=== PATIENT | female | born 1975 | race Caucasian/White ===

== ENCOUNTER → 2021-08-06 14:18 | Outpatient (CLI) | payer OTHER, SELFPAY ==
[2021-08-06 15:47] LABS: COVID19 -Nasal RAPID Negative (Negative)
== END ==
PROVIDERS: Family Provider Family Medicine; PCP Family Medicine; Visit Provider Obstetrics & Gynecology
DX: Z01.812 Encounter for preprocedural laboratory examination (principal); Z20.822 Contact with and (suspected) exposure to COVID-19
CPT/HCPCS: 87635

== ENCOUNTER 2021-08-09 08:32 | Inpatient (IN) | payer OTHER, SELFPAY ==
[2021-08-09] VITALS (14 sets, daily range): BP systolic 109–138; BP diastolic 58–98; PULSE 60–86; RESP 10–23; TEMP 36.1–36.9; O2SAT 97–100; BMI 31.8
--- NOTE | 2021-08-09 | PATH_ITS ---
[facility] Accession Number: [id number] . 01 Material submitted: . uterus - UTERUS AND BILATERAL FALLOPIAN TUBES . 02 Diagnosis: Uterus and Bilateral Fallopian Tubes, Laparoscopic converted to open Saupracervical Hysterectomy and Bilateral Salpingectomy (Weight 99 grams): Weakly proliferative endometrium; negative for glandular hyperplasia, cytologic atypia, or malignancy. Myometrium with a benign leiomyoma (17 mm); negative for atypia or malignancy. Uterine serosa involved by endometriosis. Right fallopian tube, complete cross sections, involved by endometriosis; negative for malignancy. Left fallopian tube, complete cross sections; negative for malignancy. [facility] 08/14/2021 1503 Local . 02 Electronically signed: . Barbie Aj MD, Pathologist NPI- [id number] . 01 Gross description: . The specimen is received in formalin, labeled uterus and bilateral fallopian tubes, and consists of a 99 gram supracervical hysterectomy measuring 5.6 cm from fundus to cervical stump, 5.0 cm from cornu to cornu, and 5.0 cm from anterior to posterior. The fallopian tubes are received attached to the uterine fundus, are fimbriated, and measure 6.7 x 0.6 cm (right), and 7.5 x 0.7 cm (left). Opening the specimen reveals an endometrial cavity measuring 3.0 cm in length x 2.1 cm in width, lined by hemorrhagic pale painter endometrium, with an average thickness of 0.1 cm. Sectioning the uterus reveals a single leiomyoma (1.7 cm in greatest dimension) involving the otherwise grossly unremarkable myometrium (2.0 cm average thickness). Sectioning the right fallopian tube reveals an unremarkable lumen with adjacent hemorrhagic adipose tissue. The left fallopian tube is grossly unremarkable. The specimen is representatively submitted as follows: . A1: Perpendicular rep of cervical stump at 12 o'clock. A2-A3: Anterior endomyometrium, bisected to include rep of leiomyoma. A4: Perpendicular rep of cervical stump at 6 o'clock. A5: Full thickness rep of posterior endomyometrium. A6: Bisected fimbria and cross sections of right fallopian tube. A7: Bisected fimbria and cross sections of left fallopian tube. ([id number]) /[facility] 08/10/2021 1715 Local . 02 Pathologist provided ICD-10: N80.9, R10.2, N94.2 . 02 CPT . 655054 Specimen Comment: A courtesy copy of this report has been sent to [phone] Performed at: 01 [facility] [address] [id number] MD Corey Rodriges MD Phone: [phone] Performed at: 02 [facility] [address] [place] [id number] MD Maricruz Crouch MD Phone: [phone]
[2021-08-09] MEDS: LACTATED RINGERS 1,000 ML 100 ML IV ×2 (09:00→14:25)
--- NOTE | 2021-08-09 09:33 | PM.PREOP ---
Pre-operative Note COVID-19 COVID-19 status: Negative Result date/Date tested (Pos, Neg/Pending): 08/08/21 Criteria for continued procedure: Non-surgical alternatives not available or appropriate per current SOC Interval Note History & Physical reviewed/Exam performed by Physician: Yes Changes to H&P: No H&P completed within 30 days and has changed as indicated here:: 08/06/21
[2021-08-09] MEDS: SCOPOLAMINE 1 PATCH TOP (09:39)
[2021-08-09] MEDS: CEFAZOLIN 2 GM/20 ML SYRINGE IV (10:00)
--- NOTE | 2021-08-09 10:38 | SUR.OPER ---
Lithotomy on padded OR bed. Bandera Pad Positioner under torso. Head on pillow, arms padded and tucked at sides. Legs secured in padded yellow fins stirrups.
[2021-08-09] MEDS: LACTATED RINGERS 1,000 ML 42 ML IV (11:01)
[2021-08-09] MEDS: ACETAMINOPHEN IV 1,000 MG/100 ML VIAL 400 MG IV (12:03)
[2021-08-09] MEDS: BUPIVACAINE 0.5% (PF) 30 ML, EPINEPHrine 0.15 MG INJ (12:15)
--- NOTE | 2021-08-09 12:35 | P.OP_ITS ---
Operative Date/Time/Diagnoses Date of procedure: 08/09/21 Time of procedure: 12:35 Pre-op diagnosis: Endometriosis Pelvic pain Post-op diagnosis: same Procedure & Clinicians Procedure: Procedures Operation Date: 08/09/21 09:45 Actual Procedure Side Surgeon p Laparoscopic converted to open Supracervical Hysterectomy/ removal of bilateral tubes Roya Parmar MD Indications: Endometriosis Pelvic pain Surgeon: Roya Parmar Set Up Mechanic Automatic Line: Juanita Royal Anesthesia Type: General and Local Operative Notes Findings: 8 wk size fixed uterus Significant endometriosis of the ovaries, uterus, bladder and bowel, posterior and anterior cul de sac Normal appendix Closure Type: primary Specimen(s): left tube, right tube and uterus Applied: catheter (To continuous drainage) and other (Interceed) Estimated blood loss (mL): 200 Blood products transfused: none Procedure in detail: The patient was taken to the operating room where she was placed in the dorsal supine position. After adequate general endotracheal anesthesia was achieved, she was placed in the dorsal lithotomy position, and prepped and draped in the usual sterile fashion. A time-out was performed. A bivalve speculum was placed into the vagina and the anterior lip of the cervix was grasped with a single- tooth tenaculum. Cervical os was sequentially dilated until the Zumi uterine manipulator could pass easily into the endometrial cavity. The single-tooth tenaculum was removed from the anterior lip of the cervix. The bivalve speculum was removed from the vagina. Attention was then turned to the abdomen where 6 cc of 0.5% Marcaine with epinephrine were injected in the umbilical fold. A 5 mm incision was made. The Veress needle was placed into the peritoneal cavity, and its placement confirmed by aspiration and drop test. The abdominal cavity was insufflated with 3.4 L of CO2. The Veress needle was removed, and a 5 mm trocar was placed without difficulty. Initial inspection of the pelvis revealed significant endometriosis of the bladder, uterus, tubes and ovaries, bilateral pelvic sidewalls, and posterior and anterior cul-de-sacs. Due to bowel being stuck to the uterus and the significant endometriosis, a decision was made to proceed with an open procedure. The after school program director scope was removed. The 5 mm trocar was removed. The incision was closed with 4-0 Monocryl in a subcuticular fashion. A Pfannenstiel skin incision was made through the previous Pfannenstiel incision and carried through to the underlying layer of fascia. The fascia was nicked in the midline and the incision extended bilaterally with the Angel scissors. The superior aspect of the fascial incision was grasped with the Dixie clamps, elevated, and underlying rectus muscles were dissected off sharply and bluntly. In a similar fashion this inferior portion of the fascia was grasped with the Dixie clamps, elevated, and the underlying rectus muscle dissected off sharply and bluntly. The rectus muscles were in the midline. The peritoneum was identified, grasped between 2 hemostats, and entered sharply with the Metzenbaum scissors. This incision was extended superiorly and inferiorly with good visualization of the bladder. The O'Mike O'Haas retractor was placed into the incision and the bowel packed away with moist lap sponges. The uterus was grasped with a 4 tooth tenaculum. The right tube was grasped with a Providence. The utero-ovarian vessels on the right side were cauterized and cut. The round ligament was cauterized and cut and tagged with a hemostat. The anterior broad ligament was entered and an attempt was made to create the bladder flap. There were significant adhesions. Posteriorly the broad ligament was entered. The uterine arteries on the right side were skeletonized. The uterine arteries were grasped with a Yemi clamp. Ligated, and suture ligated with 0 Vicryl. All of this was repeated on the patient's left side. The bowel was taken down off of the posterior uterus and cervix. The uterine arteries on the left side were skeletonized, clamped, and suture ligated with 0 Vicryl. The remainder of the bladder flap was created carefully using the Metzenbaum scissors. A moistened sponge stick was then used to bluntly take the bladder down off of the lower uterine segment and cervix. The uterus was amputated 2 cm above the uterosacral ligaments using the Bovie after the Zumi uterine manipulator was removed from the uterus. The endocervical canal was extensively cauterized with the Bovie. The uterus and tubes were handed off for specimen. Approximately 150 endometriotic lesions were cauterized or excised on the ovaries, posterior cul-de-sac, bladder, and bilateral ovarian fossa. The pelvis was copiously irrigated with warm normal saline. There was no bleeding noted. The O'Mike O'Haas retractor and moist lap sponges were removed from the abdomen. The peritoneum was closed over the cervix using 2 0 Vicryl. The parietal peritoneum was closed using 2 0 Vicryl. The fascia was reapproximated using 0 Vicryl in a running fashion. Subcutaneous layer was copiously irrigated with warm normal saline. Six simple interrupted sutures with 3-0 Vicryl were placed to reapproximate the subcutaneous layer. The skin was closed using 4-0 Monocryl in a subcuticular fashion. Steri-Strips and Aquacel dressing were placed. An Allevyn dressing was placed over the umbilical incision. Sponge, lap, and instrument counts were correct x2. The patient tolerated the procedure well, and was taken to PACU in stable condition. Complications: none Post-operative Condition: stable Disposition: PACU Plan for aftercare: To Acute Care after Recovery
[2021-08-09] MEDS: OXYCODONE/ACETAMINOPHEN 5/325 TABLET 1 TAB PO ×2 (13:12→13:38)
[2021-08-09] MEDS: HYDROMORPHONE 2 MG INJ IV ×4 (13:12→13:35)
--- NOTE | 2021-08-09 13:52 | SUR.PHASEI ---
report called to l/d rn, questions answered.
[2021-08-09] MEDS: MORPHINE 4 MG/ML INJ IV (14:36)
[2021-08-09] MEDS: fentaNYL 100 MCG/2 ML INJ 50 MCG IV (15:34)
--- NOTE | 2021-08-09 15:51 | PC.NURSE ---
1400: pt brought to BC03 from PACU. Umbilical dressing saturated and changed by CHECK EMBOSSER's. VSS. Pain 10/21. Will call MD for additional pain meds. Aquacel dressing CD&I. SCD's initiated. at bedside and call light w/in reach
--- NOTE | 2021-08-09 16:11 | PC.NURSE ---
pt states pain is better and the fentanyl took the edge off. RN will bring next dose oxycodone as scheduled, pt is aware and agrees.
--- NOTE | 2021-08-09 16:44 | PC.NURSE ---
1640: All VSS at this time. Umbilical dressing dry and intact. Abdominal dressing intact with small spot of old drainage - which was present on arrival to floor. Pt states pain is 5/10 and is tolerable. Will continue to monitor. Pt denies needing anything at this time.
[2021-08-09] MEDS: OXYCODONE IR 5 MG TABLET PO (17:39)
[2021-08-09] MEDS: KETOROLAC 30 MG/ML VIAL IV (18:03)
[2021-08-09] MEDS: ACETAMINOPHEN 325 MG TABLET 650 MG PO (20:43)
[2021-08-09] MEDS: DOCUSATE 100 MG CAPSULE 200 MG PO (20:43)
[2021-08-09] MEDS: OXYCODONE IR 5 MG TABLET 10 MG PO (20:44)
[2021-08-09] MEDS: METOPROLOL ER 50 MG TABLET PO (20:44)
[2021-08-10] VITALS: BP 118/68; PULSE 88; RESP 16; TEMP 37.3; O2SAT 97
[2021-08-10] MEDS: LACTATED RINGERS 1,000 ML 100 ML IV (00:01)
[2021-08-10] MEDS: KETOROLAC 30 MG/ML VIAL IV ×2 (00:02→06:22)
[2021-08-10] MEDS: OXYCODONE IR 5 MG TABLET 10 MG PO ×5 (00:02→20:38)
--- NOTE | 2021-08-10 01:01 | PC.NURSE ---
pt dressing aquacel to lower abomen clean dry and intact. umbilicus dressing with small amount bloody drainage present. patient states her pain is much more controlled than earlier. she was able to fall asleep for about 1 hour. 1600cc clear yellow UOP emptied and pt is yuri po well. will dangle to ambulate in am. continue to monitor pain.
[2021-08-10] MEDS: ACETAMINOPHEN 325 MG TABLET 650 MG PO (06:23)
[2021-08-10 06:40] LABS: Add Manual Diff / Slide Review NO; Basophils Absolute Auto 0 /uL (0-100); Basophils Percent Auto 0.2 % (0-2); Eosinophils Absolute Auto 0 /uL (0-450); Eosinophils Percent Auto 0.1 % (2-4); Hematocrit 33.7 % (36-46); Hemoglobin 11.3 g/dL (12.0-16.0); Lymphocytes Absolute Auto 1200 /uL (1100-4500); Lymphocytes Percent Auto 9.7 % (25-40); Mean Corpuscular HGB Conc 33.4 % (30-36); Mean Corpuscular Hemoglobin 30.5 PG (26-34); Mean Corpuscular Volume 91.5 fL (80-100); Monocytes Absolute Auto 1000 /uL (0-900); Monocytes Percent Auto 8.2 % (3-14); Neutrophils Absolute Auto 10000 /uL (1500-7000); Neutrophils Percent Auto 81.8 % (50-75); Platelet Count 234 X10^3/uL (150-400); Red Blood Cell Count 3.69 X10^6/uL (4.0-5.2); Red Cell Distribution Width 13.1 % (11.6-14.8); White Blood Cell Count 12.2 X10^3/uL (4.5-11.0)
--- NOTE | 2021-08-10 07:06 | PC.NURSE ---
pt up in room, ambulating well and without any difficulties. ambulated to bathroom and pericare completed, baldomero pad changed, small vaginal drainage. IV to saline lock, advised pt to get oob by 8am to void. pt agrees to call for assistance. medicated with oxycodone 10mg, tylenol 650mg and toradol 30mg. pt states her pain is well controlled this am.
[2021-08-10] MEDS: OXYCODONE IR 5 MG TABLET PO (07:19)
[2021-08-10 08:00] VITALS: BP 118/65; PULSE 75; RESP 16; TEMP 36.6; O2SAT 98
--- NOTE | 2021-08-10 08:11 | PC.NURSE ---
Awake, alert and orientated. Resting in bed. Morelos removed earlier. No urge to void at this time. SHIVANI in-situ capped at this time/not accessed. Vitals: bp 105/63, T. 99.0, P. 81, RR. 16. Eating and tolerating fluids at this time. 2x2 Umbilical dressing, some old oozing noted around edges. Aquacell dressing intact, one small dime size old drainage noted on right side. Pain well controlled with ibuprofen/tylenol and oxycodone. Scant perineal bleeding noted. CHRISTIANO
--- NOTE | 2021-08-10 09:59 | PC.NURSE ---
up to bathroom, voided sufficient quantities of urine as stated by patient. Feels like she was able to empty her bladder. Denies pain/discomfort at this time. resting quietly in bed. Dr Parmar in to see ~30 mins ago
[2021-08-10] MEDS: METOPROLOL IR 50 MG TABLET PO ×2 (10:24→20:39)
[2021-08-10] MEDS: DOCUSATE 100 MG CAPSULE 200 MG PO ×2 (10:24→20:39)
[2021-08-10 11:12] VITALS: TEMP 37.4
[2021-08-10] MEDS: IBUPROFEN 600 MG TABLET PO ×2 (12:15→13:10)
[2021-08-10 13:10] VITALS: TEMP 36.6
--- NOTE | 2021-08-10 15:21 | PC.NURSE ---
92/54, hr 91, temp 98.9, 02 96%. Comfortable at this time. Tolerating food/water. Pain controlled with ibuprofen and oxycodone. Voiding sufficient quantities of pale yellow urine. Will continue to monitor
--- NOTE | 2021-08-10 16:11 | PC.NURSE ---
patient resting comfortably in bed. Voiding without difficulty. Pain controlled with ibuprofen and oxycodone.
--- NOTE | 2021-08-10 16:37 | P.PN_ITS ---
Subjective Subjective Date Patient Seen: 08/10/21 Time Patient Seen: 16:37 Interval history: Patient is a 46 year postop day # 1 status post abdominal supracervical hysterectomy with bilateral salpingectomy and significant cauterization and excision of endometriosis. Her Morelos catheter was removed this morning. She was able to void without difficulty. No nausea or vomiting. Pain is under control. She has tolerated a diet. She is ambulating without assistance. Exam Vital Signs (past 8 hours): - 08/10/21 11:12 08/10/21 13:10 Temperature 99.3 F 97.8 F Oxygen Delivery Method Room Air Narrative Exam Narrative: Generally: Patient is sitting up in bed, eating a meal, no acute distress Lungs: Clear to auscultation bilaterally Cardiovascular: Regular rate and rhythm Abdomen: Soft and flat. Incision: Clean dry and intact with Aquacel dressing. The umbilical incision has a dressing that has a moderate amount of old blood. This is removed and replaced. Extremities: Negative Homans Objective Labs Result Diagrams: 08/10/21 06:20 Labs: Laboratory Results - last 24 hr 08/10/21 06:20 WBC 12.2 H RBC 3.69 L Hgb 11.3 L Hct 33.7 L MCV 91.5 MCH 30.5 MCHC 33.4 RDW 13.1 Plt Count 234 Neut % (Auto) 81.8 H Lymph % (Auto) 9.7 L [place] % (Auto) 8.2 Eos % (Auto) 0.1 L Baso % (Auto) 0.2 Neut # (Auto) 82825 H Lymph # (Auto) 1200 [place] # (Auto) 1000 H Eos # (Auto) 0 Baso # (Auto) 0 PFSH Medical History (Updated 07/05/21 @ 21:09 by Natalie Zarate) Abnormal Pap smear of cervix (~1997) Chicken pox (~1987) Endometriosis (~2009) Heavy menstrual period (~2014) Infertility (~2003) Painful menstrual periods (~2014) Positive PPD (~1998) Surgical History (Updated 07/05/21 @ 21:09 by Natalie Zarate) Anesthesia History of section (~09/16/11) History of laparoscopy (~2008) Hx laparoscopic cholecystectomy (~1998) S/P wisdom tooth extraction Family History (Updated 07/05/21 @ 21:10 by Natalie Zarate) Father Stroke Mother Macular degeneration Mental health problem Grandmother Hypertension Hyperlipidemia Stroke Social History household members: spouse Smoking Status: Never smoker alcohol intake: current Assessment & Plan Post-op Postoperative Procedures: Procedures Operation Date: 08/09/21 09:45 Actual Procedure Side Surgeon p Laparoscopic converted to open Supracervical Hysterectomy/ removal of bilateral tubes Roya Parmar MD Postoperative day: 1 Postoperative status: doing well Postoperative plan: routine post-op care Postoperative plan narrative: Anticipate discharge August 11, 2021 Time Spent With Patient Time with patient: 15-24 minutes
[2021-08-10 20:58] VITALS: BP 101/53; PULSE 79; RESP 16; TEMP 37.4; O2SAT 97
--- NOTE | 2021-08-10 21:06 | PC.NURSE ---
pt up in room independently, voiding qs, vss, pt medicated for pain per MD order. pm snack given. IV discontinued. pt will call during the night when awake for vs, ect or any other needs. resting comfortably at this time.
[2021-08-11] MEDS: ACETAMINOPHEN 325 MG TABLET 650 MG PO ×2 (01:00→07:54)
[2021-08-11] MEDS: IBUPROFEN 600 MG TABLET PO ×2 (01:00→07:55)
[2021-08-11 01:40] VITALS: BP 111/65; PULSE 80; RESP 16; TEMP 36.4; O2SAT 96
--- NOTE | 2021-08-11 01:41 | PC.NURSE ---
pt awake, called nurse into room for VS. VSS, took tylenol and ibuprofen for pain with snack. up independently to bathroom, states voiding well and without difficulty. no other needs now, pt wants to go back to sleep. instructed to call for pain medication prn. pt agrees.
[2021-08-11 02:00] VITALS: BP 111/65; PULSE 80; RESP 16; TEMP 36.4; O2SAT 96
[2021-08-11] MEDS: OXYCODONE IR 5 MG TABLET 10 MG PO ×2 (05:05→09:06)
--- NOTE | 2021-08-11 06:54 | PC.NURSE ---
medicated per pt request at 0505 with oxycodone. pt up and about in room, wanting to take a shower after pain meds effective this am.
--- NOTE | 2021-08-11 07:13 | PC.NURSE ---
05:00 RN at bedside per call, patient is doing well was sitting up in bed. Patient requested some crackers, pudding, and oxycodone. She would like to take some pain medications and then take a shower. No other issues or concerns at this time.
[2021-08-11] MEDS: METOPROLOL IR 50 MG TABLET PO (09:06)
[2021-08-11] MEDS: DOCUSATE 100 MG CAPSULE 200 MG PO (09:06)
--- NOTE | 2021-08-11 11:09 | P.DS_ITS ---
History of Present Illness History of Present Illness Date Patient Seen: 08/11/21 Time Patient Seen: 11:09 Chief complaint: OPB Narrative: Patient is a 46-year-old postop day # 2 status post diagnostic laparoscopy which was converted to an open procedure with supracervical hysterectomy/bilateral salpingectomy/cauterization and excision of 150 endometriosis lesions. Her postoperative course included pain management issues on postop day # 0-1. These resolved. She is tolerating a diet. She was able to void without the catheter on postop day # 1. She can ambulate without assistance. She is discharged home. Discharge Providers Provider Discharge Date: 08/11/21 Primary care physician: Israel Villalba MD Discharge provider: Roya Parmar MD Summary Hospital Course Discharge Diagnosis: Abdominal supracervical hysterectomy with bilateral salpingectomy Severe endometriosis Excisions/fulguration endometriotic lesions Hospital Course: Patient is a 46-year-old 1 para 1 who presented for a laparoscopic supracervical hysterectomy on August 09, 2021. We proceeded to an open procedure due to significant endometriosis and adhesions in the pelvis. She underwent an open supracervical hysterectomy/bilateral salpingectomy/excision or fulguration of proximally 150 endometriotic lesions. Her postoperative course was compl icated by some pain management issues on postop day 0-1. These were resolved with scheduled Tylenol/Toradol, and increasing the dose of oxycodone to 10 mg. She is tolerating a diet. She voided without the catheter on postop day # 1. She is ambulating without assistance. No nausea or vomiting. Status at Discharge Cognitive/behavioral status at discharge: oriented Functional status at discharge: independent ambulation Overall status at discharge: patient is progressing back to baseline Time Spent with Patient Time spent: Less than 30 minutes Exam Vital Signs (past 8 hours): Oxygen Delivery Method Room Air Narrative Exam Narrative: Generally: Patient is sitting up in bed, no acute distress Lungs: Clear to auscultation bilaterally Cardiovascular: Regular rate and rhythm Abdomen: Soft and flat. Good bowel sounds. Incisions: Clean dry and intact with Aquacel dressing. The umbilical dressing was changed yesterday due to some blood collection. Extremities: Negative Homans Objective Labs Result Diagrams: 08/10/21 06:20 [facility] Medical History (Updated 07/05/21 @ 21:09 by Natalie Zarate) Abnormal Pap smear of cervix (~1997) Chicken pox (~1987) Endometriosis (~2009) Heavy menstrual period (~2014) Infertility (~2003) Painful menstrual periods (~2014) Positive PPD (~1998) Surgical History (Updated 07/05/21 @ 21:09 by Natalie Zarate) Anesthesia History of section (~09/16/11) History of laparoscopy (~2008) Hx laparoscopic cholecystectomy (~1998) S/P wisdom tooth extraction Family History (Updated 07/05/21 @ 21:10 by Natalie Zarate) Father Stroke Mother Macular degeneration Mental health problem Grandmother Hypertension Hyperlipidemia Stroke Social History household members: spouse Smoking Status: Never smoker alcohol intake: current Discharge Assessment & Plan Assessment and Plan Assessment: Postop day # 2 status post abdominal supracervical hysterectomy/bilateral salpingectomy/excision or fulguration of 150 endometriotic lesion Postoperatively patient doing very well Plan of Treatment: Discharge to home Follow-up in 2 weeks Remove Allevyn dressing on Friday Remove Aquacel dressing in 1 week Rx for oxycodone sent in Discharge Plan Discharge Plan Patient Disposition: Home Provider Discharge Comment: Call with fever, chills, redness or drainage around the incisions, or bleeding vaginally more than spotting. Ibuprofen 600 mg every 6 hours as needed Tylenol 650 mg every 6 hours as needed Nursing Discharge Comment: Scopalamine Patch placed behind R ear. It is good for 3 days. You may remove it before 3 days are up if you no longer need it. To disgard when finished, place patch in tissue, place tissue in ziplock bag and throw in garbage. Be careful and wash hands after handling the patch and do not touch your eyes. Discharge orders & Medications Discharge Orders: Discharge (Order); Ordered 08/11/21 Ordered By: Roya Parmar Prescriptions: New oxycodone 10 mg tablet 10 mg PO Q6H PRN (Reason: pain) Qty: 30 0RF Continued metoprolol succinate 50 mg tablet extended release 24 hr 50 mg PO BID 0RF minocycline 100 mg capsule 100 mg PO BID 0RF ondansetron 8 mg tablet,disintegrating 8 mg PO Q8H PRN (Reason: nausea and vomiting) Qty: 10 2RF Follow up/Referrals: Roya Parmar MD [Physician] - 2 Weeks (My office will call on Friday to schedule at 2 week post op check) Diet/Activity/Treatments Diet: Regular Activity: No heavy lifting. Nothing more than a gallon of milk Skin/Wound/Dressing Care Report to your healthcare provider any signs of infection, such as:: chills, fever, increased pain, unusual drainage and unusual redness Dressing: Remove outer pink dressing with attached gauze over the umbilicus in 3 days after morning shower. Remove Aquacel dressing 1 week from surgery, using nail Uruguayan remover. Visit Report/Discharge Packet Instructions: DI for Hysterectomy, DI for Prescription Opioid Use Stand Alone Forms: Surgery Discharge Discharge Data Primary Care Provider: Israel Villalba Attending Provider: Roya Parmar
== END 2021-08-11 12:15 | disposition home or self-care (01) | DRG 743 ==
LOC: OR 08:32 → AC 08:33 → LABOR 10:47
PROVIDERS: Admitting Provider Obstetrics & Gynecology; Family Provider Family Medicine; PCP Family Medicine; Referring Provider Obstetrics & Gynecology; Visit Provider Obstetrics & Gynecology
PROC: 0UT94ZL Resection of Uterus, Supracervical, Percutaneous Endoscopic Approach (ICD-10-PCS; principal; 2021-08-09 09:45)
DX: N80.3 Endometriosis of pelvic peritoneum (principal); K66.0 Peritoneal adhesions (postprocedural) (postinfection); Z20.822 Contact with and (suspected) exposure to COVID-19
CPT/HCPCS: 36415; 58180; 81025; 85025; J0131; J0171; J0330; J0690; J1100; J1170; J1885; J2270; J2405; J2704; J3010

== ENCOUNTER 2024-05-27 11:03 | Day surgery (SDC) | payer OTHER, SELFPAY ==
[2024-05-27] VITALS (8 sets, daily range): BP systolic 97–118; BP diastolic 58–69; PULSE 80–95; RESP 10–20; TEMP 36.2–36.8; O2SAT 94–100; BMI 30.9
[2024-05-27] MEDS: SCOPOLAMINE 1 PATCH TOP (12:16)
[2024-05-27] MEDS: ACETAMINOPHEN 325 MG TABLET 975 MG PO (12:16)
--- NOTE | 2024-05-27 12:55 | PM.PREOP ---
Pre-operative Note Interval Note History & Physical reviewed/Exam performed by Physician: Yes Changes to H&P: No
--- NOTE | 2024-05-27 12:56 | PM.OP.1 ---
Operative Date/Time/Diagnoses Date of procedure: 05/27/24 Time of procedure: 13:52 Pre-op diagnosis: Chronic tonsillitis, tonsil stones, asymmetric tonsils, tonsillar hypertrophy, upper airway obstruction, halitosis, dysphagia Post-op diagnosis: same Procedure & Clinicians Procedure: Tonsillectomy Same procedure as scheduled: Yes Indications: 48 Year old with the above diagnoses incompletely managed with medical therapy presents for the above procedure. Following discussion of the material risks benefits complications and alternatives, the patient elected to proceed. Surgeon: Hong Kraus Click Yes if Unassisted: Yes Anesthesia Type: General and Local Operative Notes Findings: Intact palate, single uvula, 2 to 3+ tonsils with stones, no sig adenoid tissue Estimated Blood Loss (mL): 10 Procedure in detail: Following identification and confirmation of consent the patient was brought to the operating room suite and placed in the supine position. General endotracheal anesthesia was administered. A head wrap, shoulder roll, and mouth gag were placed and a red rubber catheter was inserted through the nostril and out the mouth to retract the soft palate. There was no significant adenoid tissue. The left tonsil was retracted medially and suction electrocautery on a setting of 30 was used to dissect the tonsil in a subcapsular plane, followed by hemostasis with the same. This process was repeated on the right side with identical findings. The tonsillar fossae were superficially infiltrated bilaterally with 1% lidocaine 1 100,000 epinephrine. Mouth gag and rubber catheter were removed and the patient was extubated in the operating room and taken to the recovery room in stable condition without known complication. Complications: none Post-operative Condition: stable Disposition: same day surgery Plan for aftercare: Push fluids, alternate Tylenol and Advil every 3 hours for baseline pain control, oxycodone for breakthrough pain. Soft diet 2 full weeks, no heavy lifting or straining 2 weeks.
--- NOTE | 2024-05-27 13:37 | SUR.OPER ---
Supine on padded OR bed, head on pillow, arms secured on padded arm boards at <90 degrees abduction, legs uncrossed, safety belt at thigh, tape over blanket over lower legs.
[2024-05-27] MEDS: LIDOCAINE 1% W/EPI 20ML 20 ML INJ (13:41)
[2024-05-27] MEDS: OXYCODONE IR 5 MG TABLET PO (14:12)
== END 2024-05-27 15:02 | disposition home or self-care (01) ==
PROVIDERS: Family Provider Family Medicine; PCP Family Medicine; Referring Provider Otolaryngology; Visit Provider Otolaryngology
PROC: (CPT 42826; principal; 2024-05-27 12:30)
DX: J35.01 Chronic tonsillitis (principal); J98.8 Other specified respiratory disorders; J35.8 Other chronic diseases of tonsils and adenoids
CPT/HCPCS: 42826; J1100; J2405; J2704; J3010

== ENCOUNTER → 2024-11-10 13:02 | Outpatient (CLI) | payer OTHER, SELFPAY ==
--- NOTE | 2024-11-10 | DI.RAD.S_ITS ---
PROCEDURE: XR AC JOINT BI INDICATIONS: XRAY TECHNIQUE: 2 views each of both acromioclavicular joints were acquired. COMPARISON: None. FINDINGS: Bones: No fractures or dislocations. Weightbearing views demonstrate normal acromioclavicular joint alignment as well. No suspicious bony lesions. Superior ribs appear normal. Soft tissues: No suspicious soft tissue calcifications. IMPRESSION: Symmetric acromioclavicular joints, without subluxation. Dictated by: John Matos M.D. on 11/11/2024 at 12:08 Approved by: John Matos M.D. on 11/11/2024 at 12:09
--- NOTE | 2024-11-10 | DI.RAD.S_ITS ---
PROCEDURE: XR SHOULDER RT MIN 2V INDICATIONS: XRAY TECHNIQUE: Three views of the right shoulder were acquired. COMPARISON: None. FINDINGS: Bones: There are no osseous abnormalities. Acromioclavicular and glenohumeral joints: Normal in width and alignment without arthritic change Soft tissues: An 8 mm heterotopic ossification is seen in the soft tissues adjacent the acromion IMPRESSION: 8 mm heterotopic ossification in the deltoid soft tissues -otherwise negative Dictated by: John Matos M.D. on 11/11/2024 at 12:09 Approved by: John Matos M.D. on 11/11/2024 at 12:10
== END ==
PROVIDERS: Family Provider Family Medicine; PCP Family Medicine; Referring Provider Family Medicine; Visit Provider Family Medicine
DX: G89.29 Other chronic pain (principal); M25.511 Pain in right shoulder; R93.7 Abnormal findings on diagnostic imaging of other parts of musculoskeletal system
CPT/HCPCS: 73030; 73050